=== PATIENT | male | born 1990 | race Two or more races ===

== ENCOUNTER 2023-12-24 04:43 | Emergency (ER) | payer SELFPAY ==
[~2023-12-24] VITALS: Ht 182.9 cm; Wt 190.0 kg
[2023-12-24 04:43] VITALS: BP 148/104; PULSE 123; RESP 20; O2SAT 95
== END 2023-12-24 07:50 | disposition left against medical advice (07) ==
LOC: ER 04:43
DX: S01.81XA Laceration without foreign body of other part of head, initial encounter (principal); R22.0 Localized swelling, mass and lump, head; Y08.89XA Assault by other specified means, initial encounter; Y93.89 Activity, other specified; Y92.89 Other specified places as the place of occurrence of the external cause; Y99.8 Other external cause status; Z53.21 Procedure and treatment not carried out due to patient leaving prior to being seen by health care provider